=== PATIENT | female | born 1955 | race African-American/Black ===

== ENCOUNTER 2016-12-25 11:17 | Inpatient (IN) | payer OTHER ==
--- NOTE | ~2016-12-25 | EKG ---
PATIENT: CUCA VILLANUEVA UNIT #: [id number] Ventricular Rate: 81 BPM Atrial Rate: 81 BPM P-R Interval: 150 ms QRS Duration: 72 ms Q-T Interval: 382 ms QTC Calculation(Bezet): 443 ms P [place]: 46 degrees Calculated R [place]: -7 degrees Calculated T [place]: 13 degrees Diagnosis Line: Normal sinus rhythm Diagnosis Line: Voltage criteria for left ventricular hypertrophy Diagnosis Line: Abnormal ECG Diagnosis Line: No previous ECGs available Diagnosis Line: Confirmed by MARY HUMPHREY MD ([id number]) on Diagnosis Line: 12/26/2016 11:47:10 AM INTERPRETING MADELINE HINES
--- NOTE | ~2016-12-25 | CO ---
Unit #: [id number] #: [id number] Patient: CUCA VILLANUEVA [id number] [facility] [address] [place], [place] [address] [id number] I MR#: [id number] NAME: CUCA VILLANUEVA. ROOM: 331 Age: 61 Sex: F Admission Date: 12/25/2016 : 1955 Attending Physician: Emily Saha M.D. Primary Care Physician: Emily Saha M.D. Requesting Physician: Emily Saha M.D. Consultation Date: 12/26/2016 CONSULTATION REPORT REASON FOR CONSULTATION Stroke. PATIENT IDENTIFICATION This is a 61-year-old apparently right-handed white female who was evaluated in room 331 at [facility]. SOURCE OF INFORMATION Medical records, some information from Dr. Saha and this patient is apparently new to her office. Her is not in the room and I called his number and there is no response. PROBLEM LIST Apparently worsening of symptoms for the last three months. OTHER PROBLEMS 1. Diabetes mellitus. 2. Hypertension. 3. Lupus. 4. She apparently has aphasia. 5. 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 6. Apparently we do not even have the list of her medications. HISTORY OF PRESENT ILLNESS This is actually a 61-year-old female who apparently is right-handed because it seems like she is aphasic and she was admitted yesterday as she apparently presented to Dr. Saha somehow, probably in her office, and the condition was that she has been declining over the last few months. Apparently, three months ago she fell and has been getting worse. To my knowledge, from the record from Dr. Saha, that she went to [facility]. She has lupus so she admitted the patient and started workup and the patient had an MRI and the MRI shows significant left MCA infarct and also a right frontal infarct, significant intracranial atherosclerotic disease. She does have lupus. She does have hypertension. She does have diabetes mellitus. But nothing acute was seen. Her ESR is elevated. Honestly, we do not even have a good list of her medications. Her blood pressure was elevated. This morning, at one time, it was as high as 187 systolic and 110 diastolic. It looks like she may be on aspirin. Her other labs are not really impressive. Her LDL is elevated. So, I am still uncertain what happened yesterday and what medication is the patient on. Could she have had seizures? Unit #: [id number] #: [id number] Patient: CUCA VILLANUEVA She apparently is a bit better today. So far, nobody has told me she has had seizures, and as I mentioned before, I cannot get any information from the patient and the is not here. I called and I did not get any response. I talked to the nurse and she does not have much information either. PAST MEDICAL HISTORY As discussed above. PAST SURGICAL HISTORY Details not known. ALLERGIES Apparently none. CURRENT MEDICATIONS So far we know that she is on: 1. Aspirin 81 mg. 2. Lovenox. 3. Vasotec. 4. NovoLog. 5. Flu shot. SOCIAL HISTORY Apparently she is . We do not have any alcohol or drug history. Apparently she is a smoker. FAMILY HISTORY Not known. REVIEW OF SYSTEMS Could not be obtained because of her aphasia. PHYSICAL EXAMINATION VITAL SIGNS: Temperature 97.6, pulse 72, respirations 18, blood pressure 166/92, O2 saturation is 94% to 99%. Weight 134 pounds. BMI 23. NEUROLOGIC: The patient is awake, she is alert, she is nonverbal for me but she did follow some simple commands. She moved her toes for me. CRANIAL NERVES: She definitely responds to threats in the primary field. Full ernandez are questionable. She has significant cataract. Pupils are reactive, size about 2.5 mm. Eye movements are conjugate. I did not see any ptosis. I did not see any nystagmus. I did not see any facial asymmetry. Muscles of facial expression seems to be normal. Muscles of mastication seemed to be normal. Sensation on the face and scalp was normal. Hearing seemed to be intact. Tongue was midline. I really could not visualize the oropharynx and uvula. Head turning was spontaneous. MOTOR: On examination, she is moving all extremities at least 4-/5 all over. SENSORY: She responded to pain all over and withdraws. GAIT AND COORDINATION: Could not be otherwise checked. REFLEXES: I could not get any reflexes. Toes are mute bilaterally. DIAGNOSTIC STUDIES LABORATORY: Reviewed. Her random glucose is 122. Hemoglobin A1c was not checked. LDL is 118. CBC was unremarkable. Urinalysis really did not show anything major. Unit #: [id number] #: [id number] Patient: CUCA VILLANUEVA IMAGING: CT head, MRA of brain, MRA of the head and neck. Please refer to those tests. IMPRESSION Progressive worsening over three months, as per history. There is nothing suggesting acute infarct. There is nothing suggesting that something happened yesterday, for example a seizure. She does have lupus, she does have hypertension, she does have hyperlipidemia. I agree with aspirin. The best approach would be: 1. To find out what is the history of present illness and what are the chief complaints and what is the temporal course of the disease and what is acutely going on. 2. Does the patient have a neurologist and a employment advisor. 3. If not then with this complex case, nothing acute going on, I would recommend that they make an appointment with the [facility] and, since she has apparently been seen there before, she will be an established patient anyway. I would recommend lipid-lowering medication, but I do not know the allergy history and the tolerance history. I will try to get some records from [facility]. I would recommend supportive care. Does the patient need placement or rehab? What other medication has been tried? How good control does she have on her condition, lupus, et cetera? I will try to get this information. If there is nothing active going on, then my recommendation will be to send her to established team for continuity of care or at least follow up at [place] because they at least happened last year. Very frustrating for me to get involved at this time with nothing acute and not much information but will be available to help any way I can. Dictated by... Mary Kate Rashid M.D. LEAH/kadi TD: 12/26/2016 17:56 JOB #: [id number] CONSULTATION REPORT X Mary Kate Rashid MD CONSULTATION REPORT
--- NOTE | ~2016-12-25 | CT71 ---
[facility] A Service of [facility] RADIOLOGY TEXT RESULTS PATIENT: CUCA VILLANUEVA LOCATION: [facility] 331-01 : 57 UNIT #: [id number] AGE: [address]: Emily Saha MD SEX: F ORDER DR: [id number] [facility] [address]. [place], [place] [address] [id number] E MR#: [id number] Acc #: [id number] NAME: CUCA VILLANUEVA : 1955 SEX: F STUDY DATE/TIME: 12/25/2016 11:55 UNIT: MADI ROOM: STUDY DESCRIPTION: CT Head Wo Contrast Attending Physician: Kamila Elizalde M.D. Ordering Physician: Kamila Elizalde M.D. Primary Care Physician: Emily Saha M.D. MEDICAL IMAGING REPORT This report is preliminary unless electronic signature is present EXAM CT head without contrast, 12/25/2016. HISTORY 61-year-old female with difficulty speaking or walking for [address] exam was performed with one or more of the following radiation dose reduction techniques: automatic exposure control, adjustment of mA and/or kV according to patient size, and iterative reconstruction. FINDINGS There is cerebral atrophy present, as well as chronic ischemic changes in the periventricular white matter. An old infarct is noted in the right parietal lobe, with a possibly more recent larger infarct in the left MCA territory. No hemorrhage is seen. The ventricles, cortical sulci, and basilar cisterns are again prominent. IMPRESSION 1. Subacute to chronic infarct in the left MCA territory. 2. Cerebral atrophy and chronic ischemic changes. 3. Old infarct in the right parietal lobe. Dictated by... Beto Ag M.D. THIS IS AN ELECTRONICALLY VERIFIED REPORT Beto Ag M.D. at 12/25/2016 7:02 PM DENG/poonam [facility] A Service [facility] RADIOLOGY TEXT RESULTS PATIENT: CUCA VILLANUEVA LOCATION: [facility] 331-01 : 57 UNIT #: [id number] AGE: [address]: Emily Saha MD SEX: F ORDER DR: TD: 12/25/2016 13:52 JOB #: [id number] MEDICAL IMAGING REPORT COPY
--- NOTE | ~2016-12-25 | HP ---
Unit #: [id number] #: [id number] Patient: CUCA VILLANUEVA [id number] [facility] [address]. [place], [place] [address] [id number] I MR#: [id number] NAME: CUCA VILLANUEVA. ROOM: 331 Age: 61 Sex: F Admission Date: 12/25/2016 : 1955 Attending Physician: Emily Saha M.D. Primary Care Physician: Emily Saha M.D. HISTORY AND PHYSICAL CHIEF COMPLAINT Inability to ambulate, generalized weakness, and not able to communicate. HISTORY OF PRESENTING ILLNESS A 61-year-old female who has a history of lupus, hypertension, and diabetes mellitus, was brought by her . First, patient was brought to my office by . He is a new patient to our practice. She was brought by ambulance. She is not able to provide any history. She does speak yes and no, but I am not sure whether I can rely on her history. According to patient's , she has been declining over the last few months. [facility] December 2015. She has a history of lupus. She is on some medication which they do not know at all. Patient's does not know the name of the pharmacy, does not know any medications, and he did not bring any bottles. According to patient's , he heard some plates and utensils falling three months ago, and she fell in the kitchen and was found on the floor nonverbal and unable to walk and talk. She was not taken to the hospital. He has been taking care of her at home. He brought her this time because of not able to take care of her anymore, and she is getting worse. Patient was sent to the ER and is being admitted to telemetry unit at [facility] for large left MCA infarct. There is no complaint of fever, chills, or rigors, no complaint of syncopal episode, no complaint of dizziness, no complaint of chest pain, no complaint of abdominal pain, and no complaint of nausea and vomiting. Patient does have a history of hypertension, lupus, and diabetes. She has not seen a physician for some time. Her does not remember the name of primary care provider. He does not remember which hospital she was admitted or has ever been admitted. PAST MEDICAL HISTORY 1. Diabetes mellitus. 2. Hypertension. 3. Lupus. SOCIAL HISTORY From what I understand, she is a smoker and she continues to smoke, although details are not known. No history of alcohol abuse or drug abuse. FAMILY HISTORY Not known. HOME MEDICATIONS Not known. Patient has been advised to bring the bottles to us. Unit #: [id number] #: [id number] Patient: CUCA VILLANUEVA ALLERGIES No known drug allergies. REVIEW OF SYSTEMS As per History of Presenting Illness. PHYSICAL EXAMINATION GENERAL: Patient is lying comfortably in bed and does not seem to be in any respiratory distress. VITAL SIGNS: Blood pressure is 163/108, respiratory rate 20, pulse 83, temperature 99.1, and oxygen saturation is 96%. HEENT: Head is normocephalic. Eye movements are normal. NECK: Supple. CHEST: Fair air entry. No additional sounds. CARDIOVASCULAR: S1 and S2 positive. Regular rhythm. ABDOMEN: Soft. Bowel sounds are positive. EXTREMITIES: Negative edema. CENTRAL NERVOUS SYSTEM: Patient is awake, alert, and oriented x1 maybe, although she is not communicating very well. A very limited exam was done. Patient is able to move all her extremities, although she does have right face flattening of the nasolabial fold and angle of mouth deviation to the left. DIAGNOSTIC STUDIES LABORATORY: Urinalysis shows normal. Troponin is less than 0.05. CBC shows WBC 5, hemoglobin 13.5, hematocrit 39.9, and platelet count of 227,000. BMP shows sodium of 139, potassium 3.5, chloride 105, BUN 13, creatinine 0.5, ALT 61, and alkaline phosphatase 150. CK is 52. Lipid profile shows total cholesterol of 167, triglycerides 77, LDL 118, and HDL 34. IMAGING: Chest x-ray shows no acute-appearing bony abnormalities. CT scan of the head was done which shows subacute to chronic infarct in the left MCA territory, cerebral atrophy and chronic ischemic changes, and old infarct in the right parietal lobe. ASSESSMENT AND PLAN Patient is being admitted to telemetry unit with: 1. Large infarct in the left middle cerebral artery, subacute, and old infarct in the right parietal lobe. 2. Hypertension not very well controlled. 3. Diabetes mellitus. 4. History of lupus. PLAN Admit to telemetry unit. Dr. Rashid has been consulted. MRI of the head with contrast is being done. MRA of the head and neck is being done. Echocardiogram will be done. Hemoglobin A1c, [place], and rheumatoid factor are being ordered. Speech will evaluate patient for diet recommendation. ammonia refrigeration worker to evaluate home situation. Patient's has been advised to bring medications with him. Accu-Cheks a.c. and at bedtime with insulin sliding scale. Please refer to progress note for further orders. Dictated by Emily Saha M.D. Unit #: [id number] #: [id number] Patient: CUCA VILLANUEVA SYLVESTER/phuong TD: 12/25/2016 17:57 JOB #: [id number] HISTORY AND PHYSICAL X Emily Saha MD X HISTORY AND PHYSICAL
--- NOTE | ~2016-12-25 | DS ---
Unit #: [id number] #: [id number] Patient: CUCA VILLANUEVA [id number] [address] [address] [id number] I MR#: [id number] NAME: CUCA VILLANUEVA. ROOM: 331 Age: 61 Sex: F Admission Date: 12/25/2016 : 1955 Discharge Date: 12/29/2016 Attending Physician: Emily Saha M.D. Primary Care Physician: Emily Saha M.D. DISCHARGE SUMMARY FINAL DIAGNOSES 1. Left middle cerebral artery stroke. 2. Hypertension. 3. Diabetes mellitus type 2. 4. History of lupus. DISCHARGE MEDICATIONS 1. Glucophage 500 mg p.o. b.i.d. 2. Norvasc 10 mg p.o. daily. 3. Lopressor 100 mg b.i.d. 4. Continue eyedrops at home. 5. Lipitor 40 mg q. h.s. 6. Plavix 75 mg daily. CONSULTATION DURING HOSPITALIZATION Dr. Rashid - Neurology Services. LAB WORKUP ON DISCHARGE BMP shows sodium 139, potassium 3.9, chloride 105, BUN 14, creatinine 0.6. CBC shows WBC 4.5, hemoglobin 12.8, hematocrit 38.2, platelet count of 237, glucose 183, hemoglobin A1c 8.2. Vitamin B12 is 409, folic acid 19.0. ESR elevated to 119. Lipid profile shows total cholesterol 167, triglyceride 77, LDL 118 and HDL 34. Troponin less than 0.05. Urinalysis shows negative. SIGNIFICANT RADIOLOGICAL STUDIES DONE DURING HOSPITALIZATION CT scan of the head without contrast which shows subacute to chronic infarct in the left MCA territory, cerebral atrophy and chronic ischemic changes. MRI of the brain was done which shows no evidence of recent ischemic insult on diffusion series. Extensive preexisting ischemic insults including a late subacute to chronic left MCA infarct. Extensive lacunar disease bilateral basal ganglia and thalami, chronic in appearance. MRA of the head and neck was done that showed left vertebral artery is large and patent. Right vertebral artery is severely diseased. HOSPITAL COURSE Unit #: [id number] #: [id number] Patient: CUCA VILLANUEVA Ms. is a 61-year-old female who was brought by because of aphasia and unable to take care. Per patient's , she had fallen three months ago. He did think that it was a stroke but never got her to ER or any physician. Condition has been declining over the last few months and could not take care of her and brought her to ER. The patient was admitted because there was a question of subacute left MCA infarct and to have a stroke workup. Stroke workup was done. Dr. Rashid was consulted. The patient's anticoagulation is being started with Plavix. Diabetic management was being done and blood pressure was uncontrolled during admission which has been controlled at this time. I have suggested multiple times to patient's that she needs subacute rehab but he has completely refused. I have discussed with social service liaison and sample case porter on multiple occasions. We will have social service liaison evaluate the situation and APS to evaluate the situation before discharge home. Patient's examination - blood pressure is 123/83, respiratory rate 18, pulse is 56, temperature 98.3. Eye movements are conjugate, no nystagmus. The patient is alert but nonverbal. She does follow some commands but not all of them. She is moving all her extremities 4 to 5 all over. Gait and coordination could not be checked. Chest - fair air entry, no additional sounds. CVS - S1, S2 positive. Regular rhythm. ABDOMEN is soft. EXTREMITIES - negative edema. DISCHARGE INSTRUCTIONS The patient will be discharged home after seen by social service liaison and APS evaluation. MEDICATION As per Med Rec. FOLLOWUP 1. Follow up with primary care provider in one week. 2. Follow up with [facility] stroke team, (1) or Dr. Morin or other physicians. 3. I have even discussed with [employer] insurance about the situation. Dictated by... Anthony Larsen TD: 12/29/2016 12:56 JOB #: [id number] DISCHARGE SUMMARY X Emily Saha MD X DISCHARGE SUMMARY
--- NOTE | ~2016-12-25 | MR134 ---
[facility] A Service of [facility] RADIOLOGY TEXT RESULTS PATIENT: CUCA VILLANUEVA LOCATION: [facility] 331- : 57 UNIT #: [id number] AGE: [address]: Emily Saha MD SEX: F ORDER DR: [id number] [facility] [address] [place], [place] [address] [id number] I MR#: [id number] Acc #: [id number] NAME: CUCA VILLANUEVA. : 1955 SEX: F STUDY DATE/TIME: 12/25/2016 21:23 UNIT: [address] ROOM: [facility] STUDY DESCRIPTION: MR MRA Neck Wo Contrast Attending Physician: Emily Saha M.D. Ordering Physician: Emily Saha M.D. Primary Care Physician: Emily Saha M.D. MRI CENTER REPORT This report is preliminary unless electronic signature is present. EXAM MR angiogram neck HISTORY Altered mental status, patient is a poor historian. Patient's indicates that she has had speech difficulty and walking difficulty for 3 months since a fall. Abnormal head CT and brain MRI. COMMENT MR angiography performed neck vessels without contrast on a 1.5T system. There is disease of the bilateral carotid bifurcations. On the right side, by NASCET criteria, there is about 25% diameter stenosis. Some mild irregularity and narrowing also noted at the distal right common carotid artery. On the left side, by NASCET criteria, there is about 31% diameter stenosis. Also some disease at the origin of the external carotid arteries. The left vertebral artery is patent and large. The right vertebral artery is mostly not seen consistent with very slow flow or occlusion. It is probably a diseased vessel and there are a few areas of distal reconstitution of a very small likely diseased vessel. There is bovine origin left common carotid artery. A wet reading provided overnight by Dr. Chong. IMPRESSION 1. By NASCET criteria, there is about 25% diameter stenosis right carotid bifurcation, 31% diameter stenosis left carotid bifurcation. 2. Left vertebral artery is large and patent. 3. Right vertebral artery is severely diseased. It is either occluded or has very slow flow proximally with only a small amount of flow related enhancement seen in a distal likely diseased reconstituted vessel. [facility] A Service of [facility] RADIOLOGY TEXT RESULTS PATIENT: CUCA VILLANUEVA LOCATION: [facility] 331-01 : 57 UNIT #: [id number] AGE: [address]: Emily Saha MD SEX: F ORDER DR: STAT * RESULT Dictated by... Zabrina Calabrese M.D. THIS IS AN ELECTRONICALLY VERIFIED REPORT Zabrina Calabrese M.D. at 12/26/2016 4:43 PM CRUZ/linetet TD: 12/26/2016 09:10 JOB #: [id number] MRI CENTER REPORT COPY
--- NOTE | ~2016-12-25 | CR72 ---
[facility] A Service of [facility] RADIOLOGY TEXT RESULTS PATIENT: CUCA VILLANUEVA LOCATION: [facility] 331-01 : 57 UNIT #: [id number] AGE: [address]: Emily Saha MD SEX: F ORDER DR: [id number] [facility] [address] [place], [place] [address] [id number] E MR#: [id number] Acc #: [id number] NAME: CUCA VILLANUEVA : 1955 SEX: F STUDY DATE/TIME: 12/25/2016 10:56 UNIT: [facility] ROOM: STUDY DESCRIPTION: CR Chest Single View Portable Attending Physician: Kamila Elizalde M.D. Ordering Physician: Kamila Elizalde M.D. Primary Care Physician: Emily Saha M.D. MEDICAL IMAGING REPORT This report is preliminary unless electronic signature is present EXAM Portable chest x-ray 12/25/2016 HISTORY Altered mental status. Cannot speak or wall. Weakness. 3 months duration. Prior history of smoking. Prior history of diabetes and stroke. AP radiograph of the chest presented. COMPARISON 11/08/2015. No acute-appearing bony abnormality. The heart is probably [id number] limits of normal in size given the very low lung volumes. Mediastinal contour is normal overall. Lung volumes significantly lower than on prior study. Some patchy and linear/band-like densities bilateral lung bases favored to be atelectasis given the low lung volumes. Areas of minimal pneumonitis not excluded but not favored. No dense airspace disease, pleural effusion, pneumothorax or suspicious nodule. Dictated by... Wiliam Kramer M.D. THIS IS AN ELECTRONICALLY VERIFIED REPORT Wiliam Kramer M.D. at 12/27/2016 5:52 PM MORRO/emili TD: 12/25/2016 12:56 JOB #: [id number] [facility] A Service of [facility] RADIOLOGY TEXT RESULTS PATIENT: CUCA VILLANUEVA LOCATION: [facility] 331-01 : 57 UNIT #: [id number] AGE: [address]: Emily Saha MD SEX: F ORDER DR: MEDICAL IMAGING REPORT COPY
--- NOTE | ~2016-12-25 | MR17 ---
[facility] A Service of [facility] & [facility] RADIOLOGY TEXT RESULTS PATIENT: CUCA VILLANUEVA LOCATION: C3A 331-01 : 57 UNIT #: [id number] AGE: [address]: Emily Saha MD SEX: F ORDER DR: [id number] [facility] [address] [place], [place] [address] [id number] I MR#: [id number] Acc #: [id number] NAME: CUCA VILLANUEVA. : 1955 SEX: F STUDY DATE/TIME: 12/25/2016 21:23 [facility] ROOM: [facility] STUDY DESCRIPTION: MR Brain WWo Contrast Attending Physician: Emily Saha M.D. Ordering Physician: Emily Saha M.D. Primary Care Physician: Emily Saha M.D. MRI CENTER REPORT This report is preliminary unless electronic signature is present. EXAM MR brain with and without contrast HISTORY Patient fell about 3 months ago and since then has been unable to speak or walk much. The patient is a very poor historian with altered mental status. History of lupus, hypertension and possibly diabetes. Subacute left MCA infarct on CT. COMMENT MRI of the brain was performed prior to and following intravenous administration of 12 mL of MultiHance. Comparison is made to an earlier head CT 12/25/2016. Redemonstrated are findings consistent with late subacute to chronic infarct involving the left MCA territory. Signal abnormality, old blood products and malacic changes are seen in the left temporal lobe more posterosuperiorly and left parietal lobe more anterolaterally as well as in inferior lateral more posterior left frontal lobe. There is no more recent appearing ischemic insult. Though the infarct was likely hemorrhagic, at this time there is no associated mass effect. There is a small component of late subacute infarct involving the left occipital pole and chronic insults noted to the right cerebral hemisphere at the right anterolateral frontal lobe and right occipital lobe in a borderzone type distribution. There is additionally a small amount of malacic change in the sagittal plane of the right frontal cortex and underlying white matter as well. Also subacute to chronic malacic change involving the left bolivar radiata to centrum semiovale. There is a component of preexisting white matter disease likely due to small vessel disease and there are large chronic-appearing lacunes in the basal ganglia and thalami as well as chronic insults to the globus pallidi are also probably related to remote insult such as due to carbon monoxide exposure or some other global hypoxic ischemic insult. Signal abnormality in the josefina is probably due STS. [facility] A Service of [facility] RADIOLOGY TEXT RESULTS PATIENT: CUCA VILLANUEVA LOCATION: C3A PC 331-01 : 57 UNIT #: [id number] AGE: [address]: Emily Saha MD SEX: F ORDER DR: to a combination of small vessel disease and Wallerian degeneration. At this time the distal right vertebral artery is hypoplastic or diseased otherwise the major intracranial flow voids are maintained and there is no extraaxial fluid collection. The paranasal sinuses are clear. Mastoid air cells are clear. Following contrast administration, there is gyriform enhancement at the areas of more late subacute to chronic insult, as expected. There is mild linear dural enhancement in general which could be age-related. There is no pathologic intracranial enhancing mass. Atrophy is noted in general. Mastoid air cells are clear. Visualized paranasal sinuses are clear. No Chiari-I malformation. The study wet read provided overnight by Dr. Chong at 03:57 a.m. IMPRESSION 1. No evidence for a recent ischemic insult on the diffusion series. 2. Extensive preexisting ischemic insults including a late subacute to chronic left MCA territory insult and a smaller component of left cerebral hemispheric borderzone type ischemic insult. 3. More chronic insults in the right cerebral hemisphere, predominantly borderzone in appearance. 4. Extensive lacunar disease bilateral basal ganglia and thalami, chronic in appearance with preexisting white matter disease probably due to small vessel disease. 5. Chronic insults to the globus pallidi could be due to prior carbon monoxide exposure or global hypoxic ischemic insult. 6. In general there is atrophy. There is no extraaxial fluid collection or intracranial mass effect and there is no pathologic intracranial enhancing mass lesion. There is some expected gyriform enhancement in the more recent left MCA territory insult. 7. Old blood product deposition is noted but no recent intracranial hemorrhage is suspected. STAT * RESULT Dictated by... Zabrina Calabrese M.D. THIS IS AN ELECTRONICALLY VERIFIED REPORT Zabrina Calabrese M.D. at 12/26/2016 4:42 PM CRUZ/yakov TD: 12/26/2016 08:49 JOB #: [id number] MRI CENTER REPORT COPY
--- NOTE | ~2016-12-25 | MR122 ---
[facility] A Service of [facility] & [facility] RADIOLOGY TEXT RESULTS PATIENT: CUCA VILLANUEVA LOCATION: A 331-01 : 57 UNIT #: [id number] AGE: [address]: Emily Saha MD SEX: F ORDER DR: [id number] [facility] [address] [place], [place] [address] [id number] I MR#: [id number] Acc #: [id number] NAME: CUCA VILLANUEVA. : 1955 SEX: F STUDY DATE/TIME: 12/25/2016 21:23 [facility]: [facility] STUDY DESCRIPTION: MR MRA Head Wo Contrast Attending Physician: Emily Saha M.D. Ordering Physician: Emily Saha M.D. Primary Care Physician: Emily Saha M.D. MRI CENTER REPORT This report is preliminary unless electronic signature is present. EXAM MR angiogram intracranial HISTORY: Altered mental status. The patient is a poor historian per . She fell about 3 months ago and had speech and walking difficulty since. Abnormal MRI brain shows areas of ischemia including the left MCA territory infarct. COMMENT MR angiography performed [place] vasculature without contrast using routine 1.5T imaging technique. There is near-complete occlusion distal left M1 vessel. There is severe stenosis leading to a patent left M2 vessel but there is overall markedly diminished flow to the left MCA territory and the vessels appear to be irregular and diseased. There is supply of the right A2 vessel from an anterior communicator from the left side. There is probably aplastic right A1 vessel. There is some irregularity of the right MCA vessels with moderate stenosis of the right M1 vessel. The distal right vertebral artery is severely diseased and supply the basilar from the left side. The basilar is moderately diseased with some irregular stenosis at its midportion. Milder disease involving the bilateral posterior cerebral arteries. There is what appears to be severe disease of the right carotid siphon with areas of both signal outpouching and severe stenosis especially at the proximal cavernous to pre cavernous segment. 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 Larger of the 2 is about 4 mm in dimension. Neither posterior communicator is seen. The preliminary wet reading provided overnight by Dr. Chong 04:02 a.m. [facility] A Service of [facility] RADIOLOGY TEXT RESULTS PATIENT: CUCA VILLANUEVA LOCATION: A [place] [address] : [birth year] UNIT #: [id number] AGE: [address]: Emily Saha MD SEX: F ORDER DR: Long segment signal loss in the right TERENCE territory is probably due to severe stenosis. On source imaging a small amount of flow is appreciated in the diseased distal right vertebral artery. Again the majority of flow to the basilar is from the left side. IMPRESSION 1. Abnormal examination with extensive areas of likely intracranial atherosclerotic disease. This includes near-complete occlusion of the distal left M1 vessel with asymmetrically diminished flow to the left MCA territory. This appearance is consistent with the appearance on the earlier MRI. The right A1 vessel is probably aplastic and supply the right A2 is from anterior communicator. There is severe disease of the right carotid siphon. Distal right vertebral artery severely diseased and supply to the basilar is largely on the left vertebral artery. Posterior circulation also shows evidence for intracranial atherosclerotic disease. 2. Suspect there is also long segment high-grade stenosis in the right TERENCE territory. Dictated by... Zabrina Calabrese M.D. THIS IS AN ELECTRONICALLY VERIFIED REPORT Zabrina Calabrese M.D. at 12/26/2016 4:43 PM CRUZ/emili TD: 12/26/2016 09:20 JOB #: [id number] MRI CENTER REPORT COPY
[2016-12-25 11:47] LABS: URINE SOURCE CLEAN CATCH
[2016-12-25 11:53] LABS: URINE APPEARANCE CLEAR; URINE BILIRUBIN NEG (NEG); URINE BLOOD NEG (NEG); URINE COLOR DK YELLOW; URINE GLUCOSE NEG (NEG); URINE KETONE NEG (NEG); URINE LEUKOCYTE ESTERASE NEG (NEG); URINE NITRATE NEG (NEG); URINE PROTEIN NEG (NEG); URINE SPECIFIC GRAVITY 1.029 (1.003-1.035)
[2016-12-25 11:55] LABS: BASOPHIL% 0.6 % (0-2.5); EOSINOPHIL% 0.5 % (0.0-7.0); HEMATOCRIT 39.9 % (35.0-45.0); HEMOGLOBIN 13.5 gm/dL (12.0-16.0); LYMPHOCYTE# 1.8 X10e3 (1.0-3.5); LYMPHOCYTE% 35.8 % (17.0-45.0); MEAN CELL VOLUME 88.3 FL (83-96); MEAN CORPUSCULAR HEMOGLOBIN 29.9 PG (28-34); MEAN CORPUSCULAR HGB CONC 33.9 g/dL (30-36); MEAN PLATELET VOLUME 8.3 FL (6.5-11.5); MONOCYTE# 0.3 X10e3 (0-1.0); MONOCYTE% 6.7 % (3.0-12.0); NEUTROPHIL# 2.8 X10e3 (1.5-7.1); NEUTROPHIL% 56.4 % (40-75); PLATELET COUNT 227 X10e3 (140-420); RED BLOOD COUNT 4.52 X10e (3.90-5.30); RED CELL DISTRIBUTION WIDTH 12.9 % (11.0-15.5)
[2016-12-25 12:02] LABS: POC - CKMB <1.0 ng/mL (0.0-7.9); POC - TROPONIN <0.05 ng/mL (<=0.05)
[2016-12-25 12:06] LABS: DIFF IND NO
[2016-12-25 13:31] LABS: ALBUMIN SERUM 3.7 g/dL (3.5-5.0); ALKALINE PHOSPHATASE 150 U/L (32-92); ALT (SGPT) 61 U/L (10-40); AST (SGOT) 21 U/L (10-42); BILIRUBIN, DIRECT 0.1 mg/dL (0.0-0.2); BILIRUBIN,INDIRECT 0.7 mg/dL (0.0-0.9); BILIRUBIN,TOTAL 0.8 mg/dL (0.2-2.0); BLOOD UREA NITROGEN 13 mg/dL (9-23); CALCIUM SERUM 9.1 mg/dL (8.4-10.2); CARBON DIOXIDE 28 mmol/L (22-31); CHLORIDE 105 mmol/L (100-111); CPK (CREATINE PHOSPHOKINASE) 52 IU/L (26-140); CREATININE SERUM 0.5 mg/dL (0.6-1.4); GLOM FILT RATE Estimated ABOVE60 mL/min (>60); GLUCOSE FASTING 122 mg/dL (70-110); POTASSIUM 3.5 mmol/L (3.5-5.1); PROTEIN TOTAL SERUM 7.8 g/dL (6.0-8.3); SODIUM 139 mmol/L (135-145)
[2016-12-25 16:21] LABS: CHOLESTEROL 167 mg/dL (0-200); HDL CHOLESTEROL 34 mg/dL (35-95); LDL CHOLESTEROL 118 mg/dL (-130); LDL/HDL RATIO 3 RATIO (0-4); TRIGLYCERIDES 77 mg/dL (10-160)
[2016-12-26] MEDS ORDERED: GLUCOPHAGE500 M1 PO (13:53)
[2016-12-26] MEDS ORDERED: TOPAMAX25 MG PO (13:54)
[2016-12-26] MEDS ORDERED: PAMELOR25 M1 PO (13:54)
[2016-12-26] MEDS ORDERED: MUCINEX DM ER1 EACH PO (13:55)
[2016-12-26] MEDS ORDERED: GUAIFENESIN600 M1 PO (13:56)
[2016-12-26] MEDS ORDERED: METOPROLOL TAR100 MG PO (13:56)
[2016-12-26] MEDS ORDERED: ACID REDUCER150 MG PO (13:57)
[2016-12-26] MEDS ORDERED: VERAMYST10 GM (13:59)
[2016-12-26] MEDS ORDERED: LATANOPROST2.5 ML OU (14:00)
[2016-12-26] MEDS ORDERED: BENADRYL25 M1 PO (14:01)
[2016-12-26] MEDS ORDERED: CALCIUM 600 W/D1 TA1 PO (14:01)
[2016-12-26] MEDS ORDERED: AMLODIPINE BESY10 MG PO (14:02)
[2016-12-29 08:09] LABS: BASOPHIL% 0.8 % (0-2.5); HEMATOCRIT 38.2 % (35.0-45.0); HEMOGLOBIN 12.8 gm/dL (12.0-16.0); LYMPHOCYTE# 2.7 X10e3 (1.0-3.5); LYMPHOCYTE% 59.9 % (17.0-45.0); MEAN CELL VOLUME 88.1 FL (83-96); MEAN CORPUSCULAR HEMOGLOBIN 29.6 PG (28-34); MEAN CORPUSCULAR HGB CONC 33.6 g/dL (30-36); MEAN PLATELET VOLUME 8.3 FL (6.5-11.5); MONOCYTE# 0.4 X10e3 (0-1.0); MONOCYTE% 8.8 % (3.0-12.0); NEUTROPHIL# 1.3 X10e3 (1.5-7.1); NEUTROPHIL% 29.5 % (40-75); PLATELET COUNT 237 X10e3 (140-420); RED BLOOD COUNT 4.34 X10e (3.90-5.30); RED CELL DISTRIBUTION WIDTH 12.8 % (11.0-15.5); WHITE BLOOD COUNT 4.5 X10e3 (4.0-10.5)
[2016-12-29 08:12] LABS: DIFF IND YES
[2016-12-29 08:37] LABS: PLATELET ESTIMATE NORMAL (NORMAL); RBC NORMAL YES
[2016-12-29 08:46] LABS: BLOOD UREA NITROGEN 14 mg/dL (9-23); BUN/CREATININE RATIO 23.33; CALCIUM SERUM 9.7 mg/dL (8.4-10.2); CARBON DIOXIDE 26 mmol/L (22-31); CHLORIDE 105 mmol/L (100-111); CREATININE SERUM 0.6 mg/dL (0.6-1.4); GLOM FILT RATE Estimated ABOVE60 mL/min (>60); GLUCOSE FASTING 125 mg/dL (70-110); POTASSIUM 3.9 mmol/L (3.5-5.1); SODIUM 139 mmol/L (135-145)
[2016-12-29] MEDS ORDERED: CLOPIDOGREL75 MG PO (14:29)
[2016-12-29] MEDS ORDERED: LIPITOR40 MG PO (14:29)
[2016-12-29 23:01] LABS: ANA SCREEN Negative (Negative)
== END 2016-12-29 15:14 | disposition home or self-care (01) | DRG 65 ==
LOC: CED 11:17 → CEDOF 15:23 → C3A PCU 16:28
PROVIDERS: Emergency Medicine; Hospitalist; Physician Assistant Medical; Psychiatry & Neurology Neurology
PROC: B33GZZZ Magnetic Resonance Imaging (MRI) of Bilateral Vertebral Arteries (ICD-10-PCS; 2016-12-25)
PROC: B33RZZZ Magnetic Resonance Imaging (MRI) of Intracranial Arteries (ICD-10-PCS; 2016-12-25)
PROC: 05H533Z Insertion of Infusion Device into Right Subclavian Vein, Percutaneous Approach (ICD-10-PCS; principal; 2016-12-26)
PROC: B546ZZA Ultrasonography of Right Subclavian Vein, Guidance (ICD-10-PCS; 2016-12-26)
PROC: B24BYZZ Ultrasonography of Heart with Aorta using Other Contrast (ICD-10-PCS; 2016-12-26)
DX: I63.9 Cerebral infarction, unspecified (principal); J98.11 Atelectasis; M32.9 Systemic lupus erythematosus, unspecified; E11.9 Type 2 diabetes mellitus without complications; Z79.84 Long term (current) use of oral hypoglycemic drugs; I10 Essential (primary) hypertension; F17.210 Nicotine dependence, cigarettes, uncomplicated; R47.01 Aphasia; Z79.82 Long term (current) use of aspirin; Z79.4 Long term (current) use of insulin; E78.5 Hyperlipidemia, unspecified; I65.01 Occlusion and stenosis of right vertebral artery
CPT/HCPCS: 36415; 70450; 70544; 70547; 70553; 71010; 80048; 80061; 80076; 81003; 82550; 82553; 82607; 82746; 82947; 83036; 84484; 85025; 85652; 86038; 86039; 92507; 92523-GN; 92610; 93005; 93306; 97110; 97116; 97163; 97167; 97530; 97535; 99285; A9577; G8978-GP; G8979-GP; G8980-GP; J1650; J1815